=== PATIENT | male | born 1980 ===

== ENCOUNTER 2024-06-07 12:56 | Emergency (ER) | payer OTHER ==
[2024-06-07] MEDS ORDERED: MORPHINE SULFATE 4 MG/ML SYRINGE ONE (15:56)
[2024-06-07] MEDS ORDERED: KETOROLAC 15 MG/ML 1 ML VIAL ONE (15:57)
[2024-06-07] MEDS ORDERED: SODIUM CHLORIDE 0.9% 1,000 ML BAG ONE (16:00)
--- NOTE | 2024-07-04 19:26 | US ---
Patient: Saulo Lugo Ordering Physician: Unknown, Unknown ID: [id number] Phone, Pager: Phone: N/ A Pager: N/A : 1980 Age/Gender: 44Y, N/A Primary Location: N/A Procedure: US venous doppler d uplex LE RT Study Date: 06/07/2024 1:49:00 PM EXAMINATION TYPE: US venous doppler duplex LE RT DATE OF EXAM: 06/22/2024 2:06 PM COMPARISON: NONE CLINICAL INDICATION: Right knee pain, obvious thigh varicose veins, no h/o DVT Negative for DVT and varicose veins were wnl SIDE PERFORMED: Right TECHNIQUE: The lower extremity deep venous system is examined utilizing real time linear array sonog samara with graded compression, doppler sonography and color-flow sonography. VESSELS IMAGED: Common Femoral Vein Deep Femoral Vein Greater Saphenous Vein * Femoral Vein Popliteal Vein Small Saphenous Vein * Proximal Calf Veins (* superficial vessels) Right Leg: Negative for DVT IMPRESSION: Grayscale, color doppler, spectral doppler imaging performed of the deep veins of the lo wer extremities. There is normal flow, compressibility, vascular waveforms.
--- NOTE | 2024-07-08 14:06 | XR ---
VASHTI PISANO : 1980 EXAM: Right knee radiographs 3 views DATE: 06/07/2024 17:05 INDICATION: Reason for study: RIGHT KNEE PAIN/ SWELLING COMPARISON: None, please note PACS downtime occurred during the radiologist interpretation of these i mages with limited priors/reports. TECHNIQUE: Right knee/s were examined in frontal, lateral, oblique and sunrise projections. FINDINGS: No evidence for acute fracture or dislocation. No joint effusion visualized. There is ost eophyte formation of the tibial plateau, patella and femoral condyles. Joint space narrowing is pres ent. Calcifications along the tibial tuberosity patellar tendon. IMPRESSION: 1. No acute osseous pathology. 2. Mild tricompartmental osteoarthritic changes.
== END 2024-06-07 19:15 | disposition home or self-care (01) ==
LOC: EC 12:56
DX: M25.461 Effusion, right knee (principal)
CPT/HCPCS: 96374; 96375; 99284